=== PATIENT | female | born 1970 | race Caucasian/White ===

== ENCOUNTER 2018-08-30 18:30 | Emergency (ER) | payer BC, OTHER ==
[~2018-08-30] VITALS: Ht 154.9 cm; Wt 90.7 kg
[2018-08-30 19:10] LABS: CALCIUM 8.5 mg/dL (8.5-10.1); CARBON DIOXIDE 26.8 mmol/L (21-32); CHLORIDE SERUM 104 mmol/L (98-107); CREATININE SERUM 0.7 mg/dL (0.6-1.0); GFR1 > 60 mL/min; GLUCOSE SERUM 120 mg/dL (74-106); POTASSIUM SERUM 4.3 mmol/L (3.5-5.1); SODIUM SERUM 135 mmol/L (136-145)
[2018-08-30 19:12] LABS: BASOPHIL % 0.4 % (0-2); PLATELET COUNT 260 x10^3mcL (130-400)
[2018-08-30 19:13] LABS: RED CELL DISTRIBUTION WIDTH 16.5 % (11.5-14.5)
[2018-08-30 19:14] LABS: ALBUMIN 3.4 g/dL (3.4-5.0); ALKALINE PHOSPHATASE 59 U/L (46-116); ALT/SGPT 24 U/L (14-59); AST/SGOT 16 U/L (15-37); BILIRUBIN TOTAL 0.1 mg/dL (0.20-1.00); TOTAL PROTEIN, SERUM 7.5 g/dL (6.4-8.2)
[2018-08-30 21:29] LABS: microscopic required? YES; urine erythrocyte NEGATIVE (NEGATIVE)
[2018-08-30 21:32] LABS: AMPHETAMINE QUAL UR NONE DETECTED (See below)
[2018-08-31 00:54] VITALS: BP 106/70
== END 2018-08-31 00:54 | disposition home or self-care (01) ==
LOC: ED 18:30
PROVIDERS: Specialist
DX: F31.9 Bipolar disorder, unspecified (principal); F20.9 Schizophrenia, unspecified
CPT/HCPCS: 36415; G0480